=== PATIENT | male | born 1960 | race Caucasian/White ===

== ENCOUNTER 2023-02-25 09:52 | Outpatient (CLI) | payer OTHER, SELFPAY | END 2023-02-25 09:53 | disposition home or self-care (01) | PROVIDERS: PCP Family Medicine; Visit Provider Family Medicine | DX: Z00.00 Encounter for general adult medical examination without abnormal findings (principal); I10 Essential (primary) hypertension; E78.5 Hyperlipidemia, unspecified; Z12.5 Encounter for screening for malignant neoplasm of prostate | CPT/HCPCS: 80048; 80061; 84153 ==

== ENCOUNTER 2024-03-22 10:03 | Outpatient (CLI) | payer OTHER, SELFPAY | END 2024-03-22 10:04 | disposition home or self-care (01) | PROVIDERS: PCP Family Medicine; Visit Provider Family Medicine | DX: Z00.00 Encounter for general adult medical examination without abnormal findings (principal); I10 Essential (primary) hypertension; E78.00 Pure hypercholesterolemia, unspecified; C61 Malignant neoplasm of prostate | CPT/HCPCS: 80048; 80061; 84153 ==

== ENCOUNTER 2025-05-03 10:11 | Outpatient (CLI) | payer OTHER, SELFPAY | END 2025-05-03 10:12 | disposition home or self-care (01) | PROVIDERS: PCP Family Medicine; Visit Provider Family Medicine | DX: I10 Essential (primary) hypertension (principal); E78.5 Hyperlipidemia, unspecified; N52.9 Male erectile dysfunction, unspecified; C61 Malignant neoplasm of prostate | CPT/HCPCS: 80048; 80061; 84153 ==